=== PATIENT | male | born 2000 | race Native Hawaiian/Other Pacific Islander ===

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

== ENCOUNTER 2020-08-29 20:08 | Observation (INO) | payer BC ==
[2020-08-29] VITALS (10 sets, daily range): BP systolic 99–125; BP diastolic 62–94; TEMP 98.6
[~2020-08-29] VITALS: Ht 177.8 cm; Wt 74.5 kg
[2020-08-29 20:30] LABS: PLATELET COUNT 200 K/uL (142-355)
[2020-08-29 20:45] LABS: POTASSIUM 3.3 mmol/L (3.6-5.2); SODIUM 143 mmol/L (136-145)
[2020-08-29 21:06] LABS: PARTIAL THROMBOPLASTIN TIME 23.5 SECONDS (24.5-33.6)
--- NOTE | 2020-08-29 23:00 | NUR ---
PATIENT ARRIVED ON FLOOR FROM ER VIA W/C. ORIENTED TO ROOM 1109 AND SURROUNDINGS, INCLUDING BATHROOM AND CALL LIGHT SYSTEM. RESPIRATIONS EVEN AND UNLABORED. NAD NOTED. DENIES ANY CHEST PAIN AT THIS TIME, EXCEPT WITH MOVEMENT. NO CONCERNS OR COMPLAINTS. 22G TO RIGHT FA FLUSHED WITH 10CC OF NS WITH NO ISSUES. BED LOCKED AND IN LOWEST POSITION. CALL LIGHT WITHIN REACH.
--- NOTE | 2020-08-30 | NUR ---
PATIENT REPORTS THAT HE HAS ISSUES WITH NEEDLES. I EXPLAINED LOVENOX AND ITS USE (DVT PROPHYLAXIS), BUT HE REFUSED IT AT THIS TIME. ENCOURAGED PATIENT TO CONTINUE MOVING AND WALKING AROUND ROOM.
[2020-08-30 00:32] VITALS: BP 127/75; TEMP 98.2; Ht 177.8 cm; Wt 74.5 kg
--- NOTE | 2020-08-30 01:10 | NUR ---
RESPONDED TO PATIENT'S CALL LIGHT. PATIENT STATES THAT HE IS STILL HAVING RIGHT-SIDED CHEST PAIN THAT RADIATES AROUND TO HIS BACK WITH MOVEMENT OR SITTING UP IN BED. WHILE LYING DOWN, HE RATES PAIN A 3/10. WHEN SITTING UP, HE STATES THAT PAIN IS 6/10. I ASKED IF THE PAIN WAS WORSENING- HE SAID NO THAT IT REMAINED THE SAME, JUST WORSE WITH MOVEMENT. HE DID NOT WANT TO TAKE NITROGLYCERIN, BUT REQUESTED TYLENOL. TYLENOL 650MG GIVEN AT THIS TIME. AWARE THAT HE SHOULD NOTIFY NURSE WITH ANY CHANGES. CALL LIGHT WITHIN REACH.
--- NOTE | 2020-08-30 03:45 | NUR ---
PATIENT LYING IN BED ON CELL PHONE. RESPIRATIONS EVEN AND UNLABORED. NAD NOTED. DENIES ANY CONCERNS OR COMPLAINTS AT THIS TIME.
[2020-08-30 04:00] VITALS: BP 116/70; TEMP 98.5
--- NOTE | 2020-08-30 05:20 | NUR ---
RT IN TO DO EKG AT THIS TIME.
--- NOTE | 2020-08-30 05:59 | NUR ---
IN TO CHECK ON PATIENT. HE IS LYING IN BED ON HIS CELL PHONE. NAD NOTED. NO CONCERNS OR COMPLAINTS VOICED AT THIS TIME. CALL LIGHT WITHIN REACH.
[2020-08-30 08:00] VITALS: BP 120/75; TEMP 97.6
--- NOTE | 2020-08-30 08:11 | NUR ---
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 PT DENIES CHEST DISCOMFORT TO LEFT SIDE, BUT STATES HE HAS DISCOMFORT TO RT SIDE THAT WRAPS AROUND TO HIS BACK UNDER HIS SHOULDER BLADE WHENEVER HE LIFTS HIS RT ARM OR SITS UP IN BED, NO PAIN ON INSPIRATION, THIS AREA SLIGHTLY ROUNDER THAN THE LEFT SIDE. PT DENIES RECENT FALLS OR INJURIES BUT DOES STATE THAT HE PITCHES ON OCCASION, AND DID PITCH SOME YESTERDAY.
--- NOTE | 2020-08-30 09:56 | NUR ---
PT GIVEN SNACKS ON REQUEST. STATES HE HAS SOME DISCOMFORT ON THE RIGHT SIDE SIDE THAT RADIATES AROUND TO HIS BACK UNDER HIS SHOULDER BLADE WHENEVER HE LIFTS HIS ARM OR MOVES. DENIES SOB.
[2020-08-30 11:36] VITALS: BP 120/71; TEMP 98.4
--- NOTE | 2020-08-30 15:03 | NUR ---
DC INSTRUCTIONS EXPLAINED TO PT WHO VERBALIZED UNDERSTANDING.
--- NOTE | 2020-08-30 15:06 | NUR ---
PT LEFT FLOOR VIA WC WITH BELONGINGS, PT IN NAD ON EXIT.
== END 2020-08-30 15:00 | disposition home or self-care (01) ==
LOC: ED 20:15 → MED/SURG 22:00
PROVIDERS: ADMIT Hospitalist; ATTEND Internal Medicine
DX: R07.89 Other chest pain (principal); E87.6 Hypokalemia; I49.8 Other specified cardiac arrhythmias
CPT/HCPCS: 36415; 80053; 82550; 83880; 84484; 85027; 85379; 85610; 85730; 87635; 93005; 94760; 96360; 99220; 99283; G0378; U0003

== ENCOUNTER 2020-09-13 21:20 | Emergency (ER) | payer BC ==
[~2020-09-13] VITALS: Ht 177.8 cm; Wt 73.0 kg
[2020-09-13 21:58] LABS: PLATELET COUNT 222 K/uL (142-355)
[2020-09-13 22:26] LABS: POTASSIUM 3.3 mmol/L (3.6-5.2); SODIUM 138 mmol/L (136-145)
[2020-09-13 23:00] VITALS: BP 130/77; TEMP 98.1
== END 2020-09-13 23:00 | disposition home or self-care (01) ==
LOC: ED 21:36
PROVIDERS: Family Medicine
DX: R00.0 Tachycardia, unspecified (principal); R55 Syncope and collapse
CPT/HCPCS: 36415; 80053; 82550; 84484; 85027; 93005; 96374; 96375; 96376; 99284; J3490